=== PATIENT | female | born 1980 | race Caucasian/White ===

== ENCOUNTER 2017-01-27 13:58 | Emergency (ER) | payer OTHER ==
[2017-01-27 14:07] VITALS: RESP 18
--- NOTE | 2017-01-27 14:10 | EDPHY ---
H & P Stated Complaint: fainted and seizure on friday HPI/ROS: CHIEF COMPLAINT:Headache, fainted 3 days ago HISTORY OF PRESENT ILLNESS: this is a 36-year-old female who has come to the emergency room concerned about headache. She currently has a mild bifrontal headache. She has had headache since an episode 3 days ago during which she fainted. She was sitting on the side of bed, had the acute onset of sharp lower abdominal pain that was severe, fainted and hit her head on a dresser. Her daughter witnessed this and noted that she had some slight shaking of her limbs. Her daughter also noticed that her eyes were half open. She awakened quickly and was able to stand up. She felt somewhat confused for few minutes. She did not bite her tongue or have incontinence. She reports 1 previous similar episode in 1996 that was also associated with severe pain. The patient tells me that her lower abdominal pain is just like pain she has experienced in the past. She has a history of possible irritable bowel syndrome with constipation and occasional severe abdominal spasms. There is nothing unusual for her about the pain that she experienced prior to fainting. She has no history of seizures. There is no family history of seizure disorder. Since this fainting episode she has had a persistent headache. She has not taken anything for headache today. She also notes fatigue and feels as if she is "hung over". Headache seems to be improving but is still present. She has taken Advil, 200 mg, on and off with some relief. The entire episode has left her worried and somewhat anxious. She also notes that she has had an upper respiratory sinus type infection for the last week or so. She has had sinus drainage. No fever. She denies neck pain or stiffness. REVIEW OF SYSTEMS: A ten point review of systems was performed and is negative with the exception of the items mentioned in the HPI. Source: Patient, Family Exam Limitations: No limitations - Personal History LMP (Females 10-55): 1-7 Days Ago Current Tetanus Diphtheria and Acellular Pertussis (TDAP): Yes - Medical/Surgical History Hx Asthma: No Hx Chronic Respiratory Disease: No Hx Diabetes: No Hx Cardiac Disease: No Hx Renal Disease: No Hx Cirrhosis: No Hx Alcoholism: No Hx HIV/AIDS: No Hx Splenectomy or Spleen Trauma: No Other PMH: colitis,dental surgery - Social History Smoking Status: Never smoked Alcohol Use: Occasionally Drug Use: None Additional Social History: She works as an parts control clerk. She is here with her daughter who is a 6th grader. - Physical Exam Exam: General Appearance: Alert. Vital signs reviewed. Blood pressure 130/80. Eyes: Pupils equal and round, no conjunctival injection, no discharge. Anicteric. ENT, Mouth: Mucous membranes are moist, no oropharyngeal erythema or edema. No sinus tenderness. No drainage in the posterior oropharynx. Neck: No lymphadenopathy, supple. No meningeal signs. Respiratory: Lungs are clear to auscultation; no wheezes, rales, or rhonchi. Cardiovascular: Regular rate and rhythm; no murmur, rub, or gallop. Gastrointestinal: Abdomen is soft and nontender, no masses or organomegaly, bowel sounds normal. Skin: Warm and dry, no rashes on exposed skin, normal color. Back: Nontender to palpation over the thoracolumbar spine. No CVAT. Extremities: No lower extremity edema, no calf tenderness or swelling. No long bone tenderness. Neurological: Alert and oriented. Moving all four extremities easily and equally. Cranial nerves II through XII are examined and are intact (visual acuity not tested). Strength is 5 over 5 bilaterally with testing of all major motor groups. Sensation is intact to light touch over all 4 extremities. Deep tendon reflexes are 2+ in the biceps and knees bilaterally. Gait is normal. [id number] is performed accurately. Psychiatric: Normal affect. Constitutional: Initial Vital Signs Temperature (C) 37.1 C 01/27/17 14:03 Heart Rate 72 01/27/17 14:03 Respiratory Rate 18 01/27/17 14:03 Blood Pressure 130/80 H 01/27/17 14:03 O2 Sat (%) 97 01/27/17 14:03 O2 Delivery Mode Room Air Allergies/Adverse Reactions: caffeine Allergy (Verified 01/27/17 14:01) diphenhydramine [From Benadryl] Allergy (Verified 01/27/17 14:01) Penicillins Allergy (Verified 01/27/17 14:01) prochlorperazine [From Compazine] Allergy (Verified 01/27/17 14:01) Home Medications: Medication Instructions Recorded NK [No Known Home Meds] 01/27/17 Medical Decision Making ED Course/Re-evaluation: 36-year-old female with a syncopal episode or possible seizure. She had a similar episode in the past with no medical workup at the time. Her daughter witnessed some limb movement and noted that her eyes were open and rolled back at the time that this occurred. Neurologic exam is normal. I do not think that she has sustained an intracranial injury with this syncopal episode/fall but I am somewhat concerned about the possibility of this having been seizure activity; particularly in light of a previous similar episode that was also associated with limb movement. CT scan of the head obtained to look for any abnormality that might result in seizures. EKG is normal. CBC is normal. test negative. Normal head CT. Normal neuro exam. I do not recommend further evaluation at this time. Most likely she had a syncopal episode, likely vasovagal. There is no evidence of infection, intracranial injury, CVA, volume loss. I can't be entirely sure that this wasn't a seizure. Differential Diagnosis: Syncope including but not limited to vasovagal syncope, arrhythmia, dehydration , and blood loss. Seizure including but not limited to electrolyte abnormality, alcohol withdrawal , medication noncompliance, head injury, and breakthrough seizure. - Data Points Laboratory Results: Laboratory Results 01/27/17 14:30 01/27/17 14:30 Departure - Departure Disposition: Home, Routine, Self-Care Clinical Impression: Syncope Qualifiers: Syncope type: vasovagal syncope Qualified Code(s): R55 - Syncope and collapse Concussion Qualifiers: Encounter type: initial encounter Loss of consciousness presence/duration: with LOC of 30 min or less Qualified Code(s): S06.0X1A - Concussion with loss of consciousness of 30 minutes or less, initial encounter Condition: Good Instructions: Syncope (ED), Concussion (ED) Additional Instructions: Adult Pain & Fever Control: We recommend Acetaminophen (Tylenol) and Ibuprofen (Motrin,Advil) for pain and fever control. When fever is high or pain severe, both drugs can be used at the same time, but at different intervals. Please note the time differences. Your dose is: Acetaminophen [500]mg every 4 to 6 hours Ibuprofen [200-400]mg every [8] hours with food OR Note: do not take Acetaminophen with Hydrocodone (Vicodin, Lortab) or Oycodone (Percocet). These medications also contain Acetaminophen. No more than 3000mg of Acetaminophen should be taken in 24 hours (for an adult).Think that your headache is probably secondary to concussion. I am giving you some information about concussion. If you continue with headaches I am recommending that you follow up with Dr. Faye Grace. She specializes in postconcussion problems. Referrals: Kaur Rodriguez MD [Primary Care Provider] - As per Instructions Faye Grace MD [Medical Doctor] - As per Instructions
--- NOTE | 2017-01-27 14:19 | CPEKG ---
Heart Rate: 75 RR Interval: 800 P-R Interval: 160 QRSD Interval: 84 QT Interval: 376 QTC Interval: 420 P [place]: 68 QRS [place]: 69 T Wave [place]: 15 EKG Severity - NORMAL ECG - EKG Impression: SINUS RHYTHM Electronically Signed By: Tyler Harry 30-Jan-2017 12:39:12
[2017-01-27 14:39] LABS: % IMMATURE GRANULYOCYTES 0.2 % (0.0-1.1); ABSOLUTE IMMATURE GRANULOCYTES 0.01 10^3/uL (0.00-0.10); ADD DIFF? NO; ADD MORPH? NO; ADD SCAN? NO; ATYPICAL LYMPHOCYTE FLAG 20 (0-99); FRAGMENT RBC FLAG 0 (0-99); HEMOGLOBIN 14.2 g/dL (12.6-16.3); LEFT SHIFT FLG 0 (0-99); LIPEMIA HEMOLYSIS FLAG 90 (0-99); MEAN CELL HEMOGLOBIN 30.1 pg (27.9-34.1); MEAN CELL HEMOGLOBIN CONCENTR. 33.8 g/dL (32.4-36.7); MEAN PLATELET VOLUME 10.4 fL (8.7-11.7); PLATELET CLUMPS FLAG 0 (0-99); PLATELET COUNT 243 10^3/uL (150-400); RED BLOOD CELL COUNT 4.72 10^6/uL (4.18-5.33); RED CELL DISTRIBUTION WIDTH 12.6 % (11.5-15.2)
[2017-01-27 14:59] LABS: ANION GAP 13 mEq/L (8-16); CALCIUM 9.1 mg/dL (8.5-10.4); CARBON DIOXIDE 25 mEq/l (22-31); CHLORIDE 103 mEq/L (97-110); CREATININE 0.6 mg/dL (0.6-1.0); GLOMERULAR FILTRATION RATE > 60; GLUCOSE 100 mg/dL (70-100); SODIUM 141 mEq/L (134-144)
[2017-01-27 15:41] VITALS: BP 98/68; PULSE 108; TEMP 98; O2SAT 96
== END 2017-01-27 15:35 | disposition home or self-care (01) ==
LOC: CED 13:58
DX: S06.0X1A Concussion with loss of consciousness of 30 minutes or less, initial encounter (principal); R55 Syncope and collapse; W22.8XXA Striking against or struck by other objects, initial encounter
CPT/HCPCS: 70450-PO; 80048-PO; 84703-PO; 85025-PO